=== PATIENT | male | born 1970 | race Caucasian/White ===

== ENCOUNTER 2017-05-09 16:26 | Emergency (ER) | payer BC ==
[~2017-05-09] VITALS: Ht 175.3 cm; Wt 124.5 kg
[~2017-05-09 16:26] MED LIST: AZITHROMYCIN600 MG PO; BENICAR20 MG PO; MINOCIN100 MG PO; NAPROSYN500 MG PO
[2017-05-09 17:10] LABS: HEMATOCRIT 39.8 % (38.0-50.0); MCH 32.8 PG (29.0-34.0); MCHC 35.7 G/DL (30.0-36.0); MCV 91.9 FL (86-99); RBC DIS.WIDTH-CV 13.2 % (11.8-14.6); RBC DIS.WIDTH-SD 44.1 % (39-53); RED BLOOD COUNT 4.33 M/uL (4.00-5.50); WHITE BLOOD COUNT 4.8 K/uL (4.1-10.2)
[2017-05-09 17:20] LABS: CHLORIDE 108 mEq/L (99-109); POTASSIUM 3.6 mEq/L (3.7-5.4); SODIUM 140 mEq/L (136-147)
[2017-05-09 17:23] LABS: GLUCOSE 69 mg/dL (70-99)
[2017-05-09 17:24] LABS: ANION GAP 7 MEQ/L (2-14)
[2017-05-09 17:25] LABS: TOTAL BILIRUBIN 1.1 mg/dL (0.0-1.0)
[2017-05-09 17:26] LABS: ALKALINE PHOSPHATASE 43 IU/L (3-129); GFR ESTIMATE (CALCULATED) > 59 mL/min/
[2017-05-09 17:27] LABS: UREA NITROGEN (BUN) 11 mg/dL (9-23)
[2017-05-09 17:41] LABS: HEMATOLOGY COMMENT 1 SN; MEAN PLAT.VOLUME 11.6 uM^3 (9.0-12.4); PLAT.SUFFICIENCY DECREASED; PLATELET COUNT 81 K/uL (156-360)
[2017-05-09] MEDS ORDERED: NAPROXEN500 MG PO (17:54)
[2017-05-09] MEDS ORDERED: LIDODERM 5% P1 PATCH TD (17:55)
[2017-05-09] MEDS ORDERED: FLEXERIL10 MG PO (17:55)
[2017-05-09 18:36] VITALS: BP 142/97
== END 2017-05-09 18:36 | disposition home or self-care (01) ==
LOC: EME 16:26
DX: M54.5 Low back pain (principal)
CPT/HCPCS: 80053; 85027; 99281; 99283; J1885